=== PATIENT | male | born 1995 | race Caucasian/White ===

== ENCOUNTER 2017-03-14 21:35 | Emergency (ER) | payer BC, OTHER ==
[2017-03-14 21:44] VITALS: RESP 16
--- NOTE | 2017-03-14 22:25 | EDPHY ---
H & P Stated Complaint: amyl nitrate liquid to nose and mouth 1 hour [place] [employer], burning sensation - Personal History Current Tetanus/Diphtheria Vaccine: Yes Tetanus Vaccine Date: 2013 - Medical/Surgical History Hx Asthma: No Hx Chronic Respiratory Disease: No Hx Diabetes: No Hx Cardiac Disease: No Hx Renal Disease: No Hx Cirrhosis: No Hx Alcoholism: No Hx HIV/AIDS: No Hx Splenectomy or Spleen Trauma: No Other PMH: Bronchitis, left knee surgery 2nd to diclocation x2, hernia inguinal repair, hypothyroidism, mono. - Social History Smoking Status: Heavy smoker HPI/ROS: Chief complaint: Exposure to poppers History of present illness: This is a 21-year-old male who presents to the emergency department after being exposed to poppers. Poppers reported as otherwise known as amyl nitrite. Patient was at a [employer] and was offered this to get high. He was supposed to inhale it but accidentally poured it into his nose and mouth. Since then he has had a burning sensation in the nose and mouth. Symptoms are persistent. He denies alleviating factors. He denies other associated signs or symptoms including no trouble breathing, no abdominal pain, no nausea or vomiting, no other symptoms reported. Review of systems: A 10 point review of systems was obtained and other than described above was negative (Nicholas Rodriguez) - Physical Exam Exam: General Appearance: Alert and no distress. Eyes: Pupils equal and round no injection. ENT: Mild erythema of the nasopharynx and oropharynx. No edema. No hoarseness , no drooling, no trismus, no stridor. Respiratory: Chest is nontender, lungs are clear to auscultation. Cardiac: regular rate and rhythm. Gastrointestinal: Abdomen is soft and nontender, no masses, bowel sounds normal. Musculoskeletal: Neck is supple and nontender. Extremities have full range of motion and are nontender. Skin: No rashes or lesions. (Nicholas Rodriguez) Constitutional: Initial Vital Signs Temperature (C) 36.9 C 03/14/17 21:41 Heart Rate 100 03/14/17 21:41 Respiratory Rate 16 03/14/17 21:41 Blood Pressure 139/96 H 03/14/17 21:41 O2 Sat (%) 95 03/14/17 21:41 O2 Delivery Mode Room Air Allergies/Adverse Reactions: No Known Allergies Allergy (Unverified 06/15/15 02:07) Home Medications: Medication Instructions Recorded Levothyroxine 80 mcg PO DAILY 06/15/15 Medical Decision Making ED Course/Re-evaluation: [facility] poison control, case # [id number], was consulted. They report with this potential ingestion patient could be at risk for methemoglobinemia. They recommend checking this level. If within normal limits he can be observed for few hours and if he remains well appearing he can be discharged. Patient is discussed with my secondary supervising physician Dr. Adrián Hamilton. Patient presents to the emergency department after possible ingestion of poppers. He is afebrile and vital signs are stable. Nontoxic. No airway compromise. Poison Control has been consulted. Methemoglobin level is obtained at their recommendation and within normal limits. Blood studies largely unremarkable. He is feeling well on re-evaluation. He will be observed for a number of hours oand if he remains well appearing and stable he will be discharged. Care of patient is turned over to my attending physician Dr. Adrián Hamilton at end of shift. (Nicholas Rodriguez) 0125AM: I did reexamine this patient at this time is resting comfortably has no complaints he tells me feels much better. He would like to be discharged he has been monitored for 4 hours with no further symptoms. Vital signs are stable. Patient is not any vomiting. No chest pain or shortness of breath. Appears well nontoxic. He is requesting discharge. (Adrián Hamilton) - Data Points Laboratory Results: Laboratory Results 03/14/17 22:06 03/14/17 22:06 03/15/17 03/14/17 03/14/17 01:00 22:06 22:06 WBC 7.63 10^3/uL 10^3/uL (3.80-9.50) RBC 5.71 10^6/uL 10^6/uL (4.40-6.38) Hgb 18.0 g/dL H g/dL (13.7-17.5) Hct 49.8 % % (40.0-51.0) MCV 87.2 fL fL (81.5-99.8) MCH 31.5 pg pg (27.9-34.1) MCHC 36.1 g/dL g/dL (32.4-36.7) RDW 12.5 % % (11.5-15.2) Plt Count 335 10^3/uL 10^3/uL (150-400) MPV 9.2 fL fL (8.7-11.7) Neut % (Auto) 47.7 % % (39.3-74.2) Lymph % (Auto) 42.7 % % (15.0-45.0) Benton % (Auto) 5.6 % % (4.5-13.0) Eos % (Auto) 3.0 % % (0.6-7.6) Baso % (Auto) 0.5 % % (0.3-1.7) Nucleat RBC Rel Count 0.0 % % (0.0-0.2) Absolute Neuts (auto) 3.63 10^3/uL 10^3/uL (1.70-6.50) Absolute Lymphs (auto) 3.26 10^3/uL H 10^3/uL (1.00-3.00) Absolute Monos (auto) 0.43 10^3/uL 10^3/uL (0.30-0.80) Absolute Eos (auto) 0.23 10^3/uL 10^3/uL (0.03-0.40) Absolute Basos (auto) 0.04 10^3/uL 10^3/uL (0.02-0.10) Absolute Nucleated RBC 0.00 10^3/uL 10^3/uL (0-0.01) Immature Gran % 0.5 % % (0.0-1.1) Immature Gran # 0.04 10^3/uL 10^3/uL (0.00-0.10) Methemoglobin Sodium 139 mEq/L mEq/L (134-144) Potassium 4.1 mEq/L mEq/L (3.5-5.2) Chloride 102 mEq/L mEq/L (97-110) Carbon Dioxide 20 mEq/l L mEq/l (22-31) Anion Gap 17 mEq/L H mEq/L (8-16) BUN 9 mg/dL mg/dL (7-23) Creatinine 0.9 mg/dL mg/dL (0.7-1.3) Estimated GFR > 60 Glucose 87 mg/dL mg/dL (70-100) Calcium 10.1 mg/dL mg/dL (8.5-10.4) Urine Opiates Screen NEGATIVE (NEGATIVE) Urine Barbiturates NEGATIVE (NEGATIVE) Ur Phencyclidine Scrn NEGATIVE (NEGATIVE) Ur Amphetamine Screen NEGATIVE (NEGATIVE) U Benzodiazepines Scrn NEGATIVE (NEGATIVE) Urine Cocaine Screen NEGATIVE (NEGATIVE) U Marijuana (THC) Screen NON-NEGATIVE H (NEGATIVE) 03/14/17 22:06 WBC RBC Hgb Hct MCV MCH MCHC RDW Plt Count MPV Neut % (Auto) Lymph % (Auto) Benton % (Auto) Eos % (Auto) Baso % (Auto) Nucleat RBC Rel Count Absolute Neuts (auto) Absolute Lymphs (auto) Absolute Monos (auto) Absolute Eos (auto) Absolute Basos (auto) Absolute Nucleated RBC Immature Gran % Immature Gran # Methemoglobin 0.5 % % (0.5-1.5) Sodium Potassium Chloride Carbon Dioxide Anion Gap BUN Creatinine Estimated GFR Glucose Calcium Urine Opiates Screen Urine Barbiturates Ur Phencyclidine Scrn Ur Amphetamine Screen U Benzodiazepines Scrn Urine Cocaine Screen U Marijuana (THC) Screen Departure - Departure Disposition: Home, Routine, Self-Care Clinical Impression: Polysubstance abuse Condition: Good Instructions: Polysubstance Abuse (ED) Additional Instructions: Follow-up with a primary care doctor for recheck If symptoms worsen or new symptoms develop return to the emergency room for recheck Referrals: NONE *PRIMARY CARE P,. [Primary Care Provider] - As per Instructions [facility],. [Clinic] - As per Instructions
[2017-03-14 22:30] LABS: % IMMATURE GRANULYOCYTES 0.5 % (0.0-1.1); ABSOLUTE IMMATURE GRANULOCYTES 0.04 10^3/uL (0.00-0.10); ADD DIFF? NO; ADD MORPH? NO; ADD SCAN? NO; ATYPICAL LYMPHOCYTE FLAG 30 (0-99); FRAGMENT RBC FLAG 0 (0-99); HEMATOCRIT 49.8 % (40.0-51.0); LEFT SHIFT FLG 0 (0-99); LIPEMIA HEMOLYSIS FLAG 90 (0-99); MEAN CELL HEMOGLOBIN 31.5 pg (27.9-34.1); MEAN CELL HEMOGLOBIN CONCENTR. 36.1 g/dL (32.4-36.7); MEAN CELL VOLUME 87.2 fL (81.5-99.8); MEAN PLATELET VOLUME 9.2 fL (8.7-11.7); PLATELET CLUMPS FLAG 0 (0-99); PLATELET COUNT 335 10^3/uL (150-400); RED BLOOD CELL COUNT 5.71 10^6/uL (4.40-6.38); RED CELL DISTRIBUTION WIDTH 12.5 % (11.5-15.2)
[2017-03-14 22:38] LABS: ANION GAP 17 mEq/L (8-16); CALCIUM 10.1 mg/dL (8.5-10.4); CARBON DIOXIDE 20 mEq/l (22-31); CHLORIDE 102 mEq/L (97-110); CREATININE 0.9 mg/dL (0.7-1.3); GLOMERULAR FILTRATION RATE > 60; GLUCOSE 87 mg/dL (70-100); POTASSIUM 4.1 mEq/L (3.5-5.2); SODIUM 139 mEq/L (134-144)
[2017-03-15 01:33] VITALS: BP 131/72; PULSE 76; TEMP 97.9; O2SAT 96
== END 2017-03-15 01:33 | disposition home or self-care (01) ==
DX: F19.10 Other psychoactive substance abuse, uncomplicated (principal); F17.200 Nicotine dependence, unspecified, uncomplicated
CPT/HCPCS: 80305